=== PATIENT | female | born 1995 | race Caucasian/White ===

== ENCOUNTER 2021-05-29 12:52 | Emergency (ER) | payer BC, OTHER ==
[~2021-05-29] VITALS: Ht 167.6 cm; Wt 77.2 kg
[2021-05-29 13:13] VITALS: BP 146/96
--- NOTE | 2021-05-29 13:22 | PHYS DOC ---
General Adult EDM: Chief Complaint: ABDOMINAL PAIN HPI: HPI: Patient is a 25-year-old female who presents to the emergency department for left lower quadrant pain that radiates to her left flank that started today. Patient reports nausea. She reports that when she had a bowel movement she noticed bright red blood when she wiped. She denies feeling a toilet. She rates her abdominal pain 7 out of 10. No treatment prior to arrival. Patient denies any diarrhea, fevers, urinary complaints. She has no medical history. (COREY MEDEROS APRN) Review of Systems: Review of Systems: Constitutional: See HPI GI: See HPI : See HPI Musculoskeletal: See HPI (COREY MEDEROS APRN) Physical Exam: PE: Constitutional: Well developed, well nourished, no acute distress, non-toxic appearance. [] HENT: Normocephalic, atraumatic, bilateral external ears normal, oropharynx moist, no oral exudates, nose normal. [] Eyes: PERRL, EOMI, conjunctiva normal, no discharge. [] Neck: Normal range of motion, no tenderness, supple, no stridor. [] Cardiovascular:Heart rate regular rhythm, no murmur [] Lungs & Thorax: Bilateral breath sounds clear to auscultation [] Abdomen: Bowel sounds normal, soft, suprapubic and left upper quadrant tenderness with palpation, negative Simental sign, no abdominal guarding or rigidity, no masses, no pulsatile masses. [] Skin: Warm, dry, no erythema, no rash. [] Back: No tenderness, no CVA tenderness. [] Extremities: No tenderness, no cyanosis, no clubbing, ROM intact, no edema. [] Neurologic: Alert and oriented X 3, normal motor function, normal sensory function, no focal deficits noted. [] Psychologic: Affect normal, judgement normal, mood normal. [] (COREY MEDEROS APRN) Current Patient Data: Labs: Laboratory Tests Test 05/29/21 13:36 05/29/21 15:40 White Blood Count 6.5 x10^3/uL Red Blood Count 4.59 x10^6/uL Hemoglobin 14.0 g/dL Hematocrit 41.3 % Mean Corpuscular Volume 90 fL Mean Corpuscular Hemoglobin 31 pg Mean Corpuscular Hemoglobin Concent 34 g/dL Red Cell Distribution Width 12.3 % Platelet Count 278 x10^3/uL Neutrophils (%) (Auto) 54 % Lymphocytes (%) (Auto) 37 % Monocytes (%) (Auto) 7 % Eosinophils (%) (Auto) 2 % Basophils (%) (Auto) 0 % Neutrophils # (Auto) 3.5 x10^3uL Lymphocytes # (Auto) 2.4 x10^3/uL Monocytes # (Auto) 0.4 x10^3/uL Eosinophils # (Auto) 0.1 x10^3/uL Basophils # (Auto) 0.0 x10^3/uL Maternal Serum HCG Beta Subunit 1 mIU/mL Sodium Level 139 mmol/L Potassium Level 3.5 mmol/L Chloride Level 103 mmol/L Carbon Dioxide Level 31 mmol/L Anion Gap 5 Blood Urea Nitrogen 11 mg/dL Creatinine 0.8 mg/dL Estimated GFR (Cockcroft-Gault) 87.4 BUN/Creatinine Ratio 14 Glucose Level 95 mg/dL Calcium Level 9.0 mg/dL Total Bilirubin 0.6 mg/dL Aspartate Amino Transf (AST/SGOT) 17 U/L Alanine Aminotransferase (ALT/SGPT) 21 U/L Alkaline Phosphatase 48 U/L Total Protein 7.2 g/dL Albumin 3.8 g/dL Albumin/Globulin Ratio 1.1 Lipase 99 U/L Urine Collection Type Clean catch Urine Color Yellow Urine Clarity Clear Urine pH 7.0 Urine Specific [place] 1.015 Urine Protein Neg Urine Glucose (UA) Neg mg/dL Urine Ketones (Stick) Neg mg/dL Urine Blood Neg Urine Nitrite Neg Urine Bilirubin Neg Urine Urobilinogen Dipstick 0.2 mg/dL Urine Leukocyte Esterase Neg Urine RBC 0 /HPF Urine WBC 0 /HPF Urine Squamous Epithelial Cells Occ /LPF Urine Bacteria 0 /HPF Current Medications Medications (Trade) Dose Ordered Sig/Craig Route PRN Reason Start Time Stop Time Status Last Admin Dose Admin Sodium Chloride 1,000 ml @ 1,000 mls/hr Q1H IV 05/29/21 13:30 05/29/21 14:29 DC 05/29/21 13:43 Fentanyl Citrate (Fentanyl 2ml Vial) 50 mcg 1X ONCE IVP 05/29/21 13:30 05/29/21 13:39 DC 05/29/21 13:45 Ondansetron HCl (Zofran) 4 mg 1X ONCE IVP 05/29/21 13:30 05/29/21 13:39 DC 05/29/21 13:42 Iohexol (Omnipaque 300 Mg/ml) 75 ml 1X ONCE IV 05/29/21 13:30 05/29/21 13:39 DC 05/29/21 15:05 (COREY MEDEROS APRN) EKG: EKG: [] (COREY MEDEROS APRN) Radiology/Procedures: Radiology/Procedures: REASON: ABDOMINAL PAIN, N/V, omni 300, 75ml PROCEDURE: CT ABD PELV W/ IV CONTRST ONLY EXAMINATION: CT abdomen and pelvis with IV contrast. INDICATION:25 years, Female, abdominal pain. TECHNIQUE: Axial CT images of the abdomen and pelvis were obtained. Coronal and sagittal reformatted performed. COMPARISON: None. Exposure: One or more of the following individualized dose reduction techniques were utilized for this examination: 1. Automated exposure control 2. Adjustment of the mA and/or kV according to patient size 3. Use of iterative reconstruction technique. FINDINGS: LOWER CHEST: Unremarkable. ABDOMEN/PELVIS: Liver, gallbladder, biliary ducts, spleen, pancreas, adrenal glands and kidneys are unremarkable. No bowel dilation. Normal appendix. Patent abdominal vasculatures. No pneumoperitoneum. No lymphadenopathy in the abdomen or pelvis by size criteria. Unremarkable urinary bladder and uterus. Polycystic appearance of the ovaries. Trace amount of pelvic free fluid in the posterior cul-de-sac, likely physiologic. MUSCULOSKELETAL STRUCTURES: No acute osseous process. Bone island in the right iliac bone. IMPRESSION: 1. No acute intra-abdominal findings. 2. Polycystic appearance of the ovaries. Clinical correlation is advised. Electronically signed by: Rose Earl MD (05/29/2021 3:27 PM) [facility] DICTATED AND SIGNED BY: ROSE EARL MD DATE: 05/29/21 1523 CC: COREY MEDEROS APRN; PCP,UNKNOWN ~ (COREY MEDEROS APRN) Heart Score: C/O Chest Pain: N/A Risk Factors: Risk Factors: DM, Current or recent (<one month) smoker, HTN, HLP, family history of CAD, obesity. Risk Scores: Score 0 - 3: 2.5% MACE over next 6 weeks - Discharge Home Score 4 - 6: 20.3% MACE over next 6 weeks - Admit for Clinical Observation Score 7 - 10: 72.7% MACE over next 6 weeks - Early Invasive Strategies (COREY MEDEROS APRN) Course & Med Decision Making: Course & Med Decision Making Pertinent Labs and Imaging studies reviewed. (See chart for details) [] Patient presents to the emergency department for left lower quadrant pain that radiates to her left flank. Patient is also reporting nausea. Work-up in the ER consisted of blood work including lipase, urinalysis and CT imaging of abdomen and pelvis. Patient treated with IV fluids, nausea and pain medication. Patient's blood work was unremarkable, urine did not show any infection, CT imaging showed polycystic appearance of ovaries. Patient was given a copy of this report and she is advised to follow-up with a UN[employer]IED COMM[employer]ICATIONS ENGINEER. Patient was discharged home with pain medication. I discussed with patient all findings and diagnostic testing as well as the need to follow-up with PCP for further e valuation and treatment or return to the ER if any new or worsening symptoms. Strict return precautions were also discussed at length. Patient voiced understanding and agreement with the plan. Patient is hemodynamically stable at the time of disposition. (COREY MEDEROS APRN) Dragon Disclaimer: Dragon Disclaimer: This electronic medical record was generated, in whole or in part, using a voice recognition dictation system. (COREY MEDEROS APRN) Attending Co-Sign The patient was seen and interviewed as well as examined at the bedside. The chart was reviewed. The case was discussed. Agree with the plan of care. (MEGHAN HARRISON DO) Departure Departure: Impression: Primary Impression: Flank pain Disposition: HOME / SELF CARE / HOMELESS Condition: GOOD Referrals: PCP,UNKNOWN (PCP) RACQUEL WADE MD Patient Instructions: Polycystic Ovarian Syndrome Additional Instructions: You are seen in the emergency department today for abdomen and flank pain. Your blood work and urinalysis were unremarkable. The CT scan of your abdomen and pelvis showed polycystic appearance to your ovaries. Please follow-up with an UNIFIED COMMUNICATIONS ENGINEER regarding this finding. You are being discharged home with pain medication that you can take for severe pain. You can take ibuprofen or naproxen for mild pain. This medication is hydrocodone and Tylenol in combination tablet. This medication may cause sedation so do not take when you need to be alert, driving a vehicle or with alcohol. Return to the emergency department if you develop worsening of your pain, high fevers refractory to treatment, tractable nausea or vomiting, weakness or any new or worsening concerns. Scripts Hydrocodone Bit/Acetaminophen (HYDROCODONE-APAP 5-325 ) 1 Each Tablet 1 TAB PO PRN Q6HRS PRN for PAIN for 2 Days, #8 TAB 0 Refills Prov: COREY MEDEROS APRN 05/29/21 COREY MEDEROS APRN May 29, 2021 13:22 MEGHAN HARRISON DO May 30, 2021 08:01
[2021-05-29] MEDS ORDERED: IOHEXOL 300 MG/ML 75 ML VIAL. IV ONE (13:30)
[2021-05-29] MEDS ORDERED: ONDANSETRON PF 4 MG/2 ML VIAL. IVP ONE (13:30)
[2021-05-29] MEDS ORDERED: IV NORMAL SALINE 1,000ML 1,000 ML IV SCH (13:30)
[2021-05-29 14:16] LABS: CREATININE 0.8 mg/dL (0.6-1.0); GFR 87.4; POTASSIUM 3.5 mmol/L (3.5-5.1)
[2021-05-29 14:17] LABS: BASO % 0 % (0-3); EOS # 0.1 x10^3/uL (0.0-0.7); EOS % 2 % (0-3); HEMATOCRIT 41.3 % (36.0-47.0); LYMPH # 2.4 x10^3/uL (1.0-4.8); LYMPH % 37 % (24-48); MEAN CORPUSCULAR HEMOGLOBIN 31 pg (25-35); MEAN CORPUSCULAR HGB CONC 34 g/dL (31-37); MEAN CORPUSCULAR VOLUME 90 fL (79-100); MONO # 0.4 x10^3/uL (0.0-1.1); MONO % 7 % (0-9); NEUT # 3.5 x10^3uL (1.8-7.7); NEUT % 54 % (31-73); PLATELET COUNT 278 x10^3/uL (140-400); RED BLOOD COUNT 4.59 x10^6/uL (3.50-5.40); RED CELL DISTRIBUTION WIDTH 12.3 % (11.5-14.5); WHITE BLOOD COUNT 6.5 x10^3/uL (4.0-11.0)
[2021-05-29 14:24] LABS: ALBUMIN 3.8 g/dL (3.4-5.0); ALBUMIN/GLOBULIN RATIO 1.1 (1.0-1.7); TOTAL BILIRUBIN 0.6 mg/dL (0.2-1.0); TOTAL PROTEIN 7.2 g/dL (6.4-8.2)
--- NOTE | 2021-05-29 15:29 | RAD ---
EXAMINATION: CT abdomen and pelvis with IV contrast. INDICATION:25 years, Female, abdominal pain. TECHNIQUE: Axial CT images of the abdomen and pelvis were obtained. Coronal and sagittal reformatted performed. COMPARISON: None. Exposure: One or more of the following individualized dose reduction techniques were utilized for thi s examination: 1. Automated exposure control 2. Adjustment of the mA and/or kV according to patient size 3. Use of iterative reconstruction technique. FINDINGS: LOWER CHEST: Unremarkable. ABDOMEN/PELVIS: Liver, gallbladder, biliary ducts, spleen, pancreas, adrenal glands and kidneys are unremarkable. No bowel dilation. Normal appendix. Patent abdominal vasculatures. No pneumoperitoneum. No lymphadenopat hy in the abdomen or pelvis by size criteria. Unremarkable urinary bladder and uterus. Polycystic nicole earance of the ovaries. Trace amount of pelvic free fluid in the posterior cul-de-sac, likely physiol ogic. MUSCULOSKELETAL STRUCTURES: No acute osseous process. Bone island in the right iliac bone. IMPRESSION: 1. No acute intra-abdominal findings. 2. Polycystic appearance of the ovaries. Clinical correlation is advised. Electronically signed by: Kaya Earl MD (05/29/2021 3:27 PM) [facility]
[2021-05-29 16:07] LABS: BACTERIA,URINE 0 /HPF (0-FEW); CLARITY,URINE CLEAR; COLOR,URINE YELLOW; GLUCOSE,URINE NEG (NEG); NITRITE,URINE NEG (NEG); RBC,URINE 0 /HPF (0-2); SQUAMOUS EPITHELIAL CELL,UR OCC /LPF; UROBILINOGEN,URINE 0.2 mg/dL (0.2 mg/dL); WBC,URINE 0 /HPF (0-4)
[2021-05-29] MEDS ORDERED: HYDR-2155 PO (16:22)
== END 2021-05-29 16:41 | disposition home or self-care (01) ==
LOC: ER 12:52
DX: R10.32 Left lower quadrant pain (principal); R10.12 Left upper quadrant pain; R11.0 Nausea
CPT/HCPCS: 36415; 74177; 80053; 81001; 83690; 84702; 85025; 96361; 96374; 96375; 99285; J2405; J3010; J7030; Q9967